=== PATIENT | male | born 1960 | race Caucasian/White ===

== ENCOUNTER → 2016-12-27 | Day surgery (SDC) | payer OTHER, BC ==
[~2016-12-27] VITALS: Ht 180.3 cm; Wt 97.6 kg
[~2016-12-27] MED LIST: CARAFATE1 GM PO; OMEPRAZOLE40 MG PO; PERCOCET 10-321 EACH PO; PROAIR HFA8.5 GM INH; ZANTAC (NON-FO150 MG PO
== END | disposition disaster alternative care site (69) ==
LOC: GPOC 12-23 11:00 → GEND 07:59 → GPOC 11:00
PROC: 0DJ08ZZ Inspection of Upper Intestinal Tract, Via Natural or Artificial Opening Endoscopic (ICD-10-PCS; principal; 2016-12-27)
DX: K44.9 Diaphragmatic hernia without obstruction or gangrene (principal); K21.9 Gastro-esophageal reflux disease without esophagitis; G47.30 Sleep apnea, unspecified; Z98.890 Other specified postprocedural states; Z79.899 Other long term (current) drug therapy
CPT/HCPCS: J7030; Q9967